=== PATIENT | female | born 1970 | race Caucasian/White ===

== ENCOUNTER 2021-08-12 16:11 | Inpatient (IN) | payer OTHER, BC ==
[~2021-08-12 16:11] MED LIST: Iopamidol-370 76% 500 ML 1 ML ONE
[2021-08-12] MEDS ORDERED: Rocuronium Bromide 10 MG/ML (10ML VIAL) ONE (16:21)
[2021-08-12 16:27] LABS: #Basophils 0.1 thou/uL (0.0-0.2); #Eosinphils 0.2 thou/uL (0.0-0.7); #Lymphocytes 5.4 thou/uL (1.20-3.40); #Monocytes 0.8 thou/uL (0.11-0.59); #Neutrophils 11.6 thou/uL (1.40-6.50); %Basophils 0.6 % (0.0-1.0); %Eosinophils 1.3 % (0.0-10.0); %Lymphocytes 29.7 % (21.0-51.0); %Monocytes 4.2 % (0.0-10.0); %Neutrophils 64.1 % (42.0-75.0); Hemoglobin 13.5 g/dL (12.0-16.0); Mean Corpuscular HGB CONC 33.1 g/dL (32.0-36.0); Mean Corpuscular Hemoglobin 27.8 pg (27.0-31.0); Mean Platelet Volume 7.2 fL (7.4-10.4); Platelet Count 380 thou/uL (130-400); RBC Distribution Width 13.4 % (11.5-14.5); Red Blood Cell (RBC) Count 4.87 mill/uL (4.20-5.40)
[2021-08-12] MEDS ORDERED: Propofol 1,000 MG/100 ML VIAL IV ONE (16:32)
[2021-08-12 16:43] LABS: ALT (SGPT) 69 U/L (8-55); AST (SGOT) 125 U/L (5-34); Albumin 4.4 g/dL (3.5-5.0); Alkaline Phosphatase 122 U/L (40-110); Anion Gap 18 mmol/L (10-20); BUN (Urea Nitrogen) 17 mg/dL (7.0-18.7); Bilirubin, Total 0.3 mg/dL (0.2-1.2); Calc. Creatinine Clearance 0 mL/min (70-130); Calcium 9.3 mg/dL (7.8-10.44); Carbon Dioxide 19 mmol/L (22-29); Chloride 106 mmol/L (98-107); Globulin 3.7 g/dL (2.4-3.5); Glucose 157 mg/dL (70-105); Potassium 3.5 mmol/L (3.5-5.1); Protein, Total 8.1 g/dL (6.0-8.3); Sodium 139 mmol/L (136-145)
[2021-08-12 16:44] LABS: BHCG - Serum Negative (NEGATIVE); Pregs Control Background? CLEAR/WHITE (CLR/WHITE); Pregs Control Bar Appear? YES (CONTROL BAR)
[2021-08-12 16:45] LABS: INR-International Normal Ratio 0.9; PTT 26.3 sec (22.9-36.1); Prothrombin Time 12.6 sec (12.0-14.7)
[2021-08-12] MEDS ORDERED: Insulin Regular 300 UNITS/3 ML VIAL SC PRN (17:08)
[2021-08-12] MEDS ORDERED: hydrALAZINE 20 MG/ML VIAL SLOW IVP PRN (17:08)
[2021-08-12] MEDS ORDERED: Dextrose 50% Abboject 50 ML SYRINGE SLOW IVP PRN (17:08)
[2021-08-12] MEDS ORDERED: Dextrose 5% in Water 1,000 ML IV PRN (17:08)
[2021-08-12] MEDS ORDERED: Ondansetron PF 4 MG/2 ML Vial IVP PRN (17:08)
[2021-08-12] MEDS ORDERED: Boostrix 0.5 ML (Tdap) VIAL ONE (17:09)
[2021-08-12 17:24] LABS: Bilirubin Negative (Negative); Blood, Urine 1+ (Negative); Clarity Clear (Clear); Glucose, Urine (Dipstick) Normal (Negative); Ketone, Urine Negative (Negative); Leukocyte Negative Leu/uL (Negative); Nitrite Negative (Negative); Protein, Urine (Dipstick) Negative (Neg-Trace); RBC/HPF 0-3 HPF (0-3); Specific Gravity, Urine 1.006 (1.002-1.036); Squamous Epithelial 0-3 HPF (0-3); Urobilinogen Normal mg/dL (Less than 2); WBC/HPF 0-3 HPF (0-3)
[2021-08-12 17:29] LABS: Bacteria/HPF 1+ HPF (None Seen)
[2021-08-12] MEDS ORDERED: Ventilator Sedation Protocol 1 EACH FS SCH (17:30)
[2021-08-12] MEDS ORDERED: Morphine 2 MG/ML VIAL SLOW IVP PRN (17:30)
[2021-08-12] MEDS ORDERED: Lorazepam 2 MG/ML VIAL SLOW IVP PRN (17:30)
[2021-08-12] MEDS ORDERED: DISCONTINUE PREVIOUS NARCOTIC PAIN MEDICATIONS AND BENZODIAZEPINES FS SCH (17:30)
[2021-08-12] MEDS ORDERED: Propofol BOLUS 1,000 MG/100 ML VIAL IV PRN (17:30)
[2021-08-12] MEDS ORDERED: Fentanyl BOLUS 250 ML IVPB PRN (17:30)
[2021-08-12 17:31] LABS: Amphetamine Not Detected (NotDetected); Barbiturates Screen Not Detected (NotDetected); Benzodiazepine Screen Not Detected (NotDetected); Cocaine Metabolite Screen Not Detected (NotDetected); Methadone Not Detected (NotDetected); Methamphetamine Not Detected (NotDetected); Opiate Screen Not Detected (NotDetected); Oxycodone Screen Not Detected (NotDetected); Phencyclidine (PCP) Not Detected (NotDetected); THC/Cannabinoid Screen Not Detected (NotDetected); Tricyclic Screen Not Detected (NotDetected)
[2021-08-12 17:36] LABS: Analyzer IN Cardio ER; Base Excess (BEa) -5.2 mEq/L (-2.0 to +3.0); CO2 Tension 32.2 mmHg (35.0-45.0); Carboxyhemoglobin (COHb) 0.3 gm% (0.0-3.0); Hemoglobin (Hb) 11.3 g/dL (12.0-16.0); O2 Tension (PaO2), arterial 86.9 mmHg (80.0-100.0); Potassium - ABG Lab 2.39 mmol/L (3.70-5.30); Puncture Site RBA; pH, Arterial 7.39 (7.35-7.45)
[2021-08-12 17:38] LABS: Magnesium 2.1 mg/dL (1.6-2.6); Phosphorus 5.5 mg/dL (2.3-4.7)
[2021-08-12] MEDS ORDERED: CEFAZOLIN 2 GM in Sodium Chloride 0.9% 100 ML IVPB SCH (17:45)
[2021-08-12] MEDS ORDERED: CEFAZOLIN 1 GM VIAL ONE (17:55)
[2021-08-12] MEDS ORDERED: levETIRAcetam 500 MG/5 ML VIAL ONE ×2 (17:58→18:00)
[2021-08-12] MEDS ORDERED: Calcium Chloride 13.6 MEQ in Sodium Chloride 0.9% 100 ML IVPB SCH (18:00)
[2021-08-12] MEDS ORDERED: Ketamine 50 MG/ML (10ML VIAL) ONE (18:21)
[2021-08-12] MEDS ORDERED: Sodium Chloride 0.9% 1,000 ML IV SCH (19:45)
[2021-08-12 20:11] LABS: Lactic Acid 4.4 mmol/L (0.5-2.2)
[2021-08-12] MEDS: Sodium Chloride 0.9% 1,000 ML IV SCH (20:33)
[2021-08-12] MEDS ORDERED: levETIRAcetam in NS 500 MG in Premix Bag 1 BAG IVPB SCH (21:00)
[2021-08-12] MEDS ORDERED: Famotidine/PF 20 mg/2ml Vial SLOW IVP SCH (21:00)
[2021-08-12] MEDS ORDERED: Xylocaine 1% w/ Epi 1:100K 10 ML VIAL ONE (21:30)
[2021-08-12] MEDS ORDERED: Lidocaine 1% w/Epinephrine 1:100K 20 ML VIAL FS SCH (22:15)
[2021-08-12] MEDS: levETIRAcetam 500 MG/5 ML VIAL SLOW IVP SCH (22:15)
[2021-08-12] MEDS: cefTRIAXone\\ROCEPHIN 2 GM in Sodium Chloride 0.9% 100 ML IVPB SCH (22:16)
[2021-08-12 22:52] LABS: #Lymphocytes 1.1 thou/uL (1.20-3.40); #Monocytes 0.7 thou/uL (0.11-0.59); #Neutrophils 11.4 thou/uL (1.40-6.50); %Eosinophils 0.2 % (0.0-10.0); %Lymphocytes 8.1 % (21.0-51.0); %Neutrophils 86.7 % (42.0-75.0); Hemoglobin 11.6 g/dL (12.0-16.0); Mean Corpuscular HGB CONC 31.2 g/dL (32.0-36.0); Mean Corpuscular Hemoglobin 28.1 pg (27.0-31.0); Mean Corpuscular Volume 89.8 fL (78.0-98.0); Mean Platelet Volume 7.7 fL (7.4-10.4); Platelet Count 215 thou/uL (130-400); RBC Distribution Width 13.3 % (11.5-14.5); Red Blood Cell (RBC) Count 4.13 mill/uL (4.20-5.40); White Blood Cell (WBC) Count 13.2 thou/uL (4.8-10.8)
[2021-08-12] MEDS: fentaNYL Citrate-0.9 % NaCl/PF 100 ML IV SCH (23:19)
[2021-08-13] MEDS: Sodium Chloride 0.9% 1,000 ML IV SCH ×3 (02:00→23:52)
[2021-08-13] MEDS ORDERED: Lorazepam 2 MG/ML VIAL SLOW IVP SCH (03:00)
[2021-08-13 03:56] LABS: Lactic Acid 4.4 mmol/L (0.5-2.2)
[2021-08-13 04:14] LABS: ALT (SGPT) 47 U/L (8-55); AST (SGOT) 74 U/L (5-34); Albumin 3.2 g/dL (3.5-5.0); Alkaline Phosphatase 77 U/L (40-110); Anion Gap 16 mmol/L (10-20); BUN (Urea Nitrogen) 13 mg/dL (9.8-20.1); Bilirubin, Total 0.2 mg/dL (0.2-1.2); Calc. Creatinine Clearance 130 mL/min (70-130); Calcium 8.4 mg/dL (7.8-10.44); Carbon Dioxide 14 mmol/L (22-29); Chloride 115 mmol/L (98-107); Globulin 2.7 g/dL (2.4-3.5); Glucose 136 mg/dL (70-105); Magnesium 1.7 mg/dL (1.6-2.6); Phosphorus 3.5 mg/dL (2.3-4.7); Potassium 4.2 mmol/L (3.5-5.1); Protein, Total 5.9 g/dL (6.0-8.3); Sodium 141 mmol/L (136-145)
[2021-08-13 04:51] LABS: Band 17 % (5-11); Hemoglobin 11.6 g/dL (12.0-16.0); Lymphocytes 10 % (21-51); MDiff Complete? YES; Mean Corpuscular HGB CONC 33.8 g/dL (32.0-36.0); Mean Corpuscular Hemoglobin 30.2 pg (27.0-31.0); Mean Corpuscular Volume 89.4 fL (78.0-98.0); Mean Platelet Volume 8.6 fL (7.4-10.4); Monocytes 4 % (0-10); Neutrophil 69 % (42-75); Platelet Count 200 thou/uL (130-400); RBC Distribution Width 13.4 % (11.5-14.5); RBC Morphology Normal; Red Blood Cell (RBC) Count 3.85 mill/uL (4.20-5.40); White Blood Cell (WBC) Count 9.7 thou/uL (4.8-10.8)
[2021-08-13] MEDS ORDERED: Sodium Chloride 0.9% 1,000 ML IV SCH (05:00)
[2021-08-13] MEDS ORDERED: Acetaminophen 650 MG Suppository PR PRN (07:14)
[2021-08-13 07:20] LABS: Actual Bicarbonate (HCO3a) 15.6 mEq/L (22-28); Base Excess (BEa) -8.7 mEq/L (-2.0 to +3.0); CO2 Tension 28.7 mmHg (35.0-45.0); Calcium, Ionized (arterial) 1.12 mmol/L (1.12-1.30); Carboxyhemoglobin (COHb) 0.2 gm% (0.0-3.0); Hemoglobin (Hb) 10.9 g/dL (12.0-16.0); O2 Tension (PaO2), arterial 91.1 mmHg (80.0-100.0); Potassium - ABG Lab 3.91 mmol/L (3.70-5.30); pH, Arterial 7.35 (7.35-7.45)
[2021-08-13 07:24] LABS: ALV-art Gradient 158.225 mmHg (0-20); Puncture Site RRA
[2021-08-13] MEDS ORDERED: Magnesium 2 GM/50 ML(in water) 2 GM in Premix Bag 1 BAG IVPB SCH (08:00)
[2021-08-13] MEDS ORDERED: Sodium Chloride 0.9% (PF) 10 ML VIAL FS PRN (08:15)
[2021-08-13] MEDS: levETIRAcetam 500 MG/5 ML VIAL SLOW IVP SCH ×2 (08:40→20:30)
[2021-08-13] MEDS: Pantoprazole 40 MG VIAL IVP SCH (08:40)
[2021-08-13] MEDS: fentaNYL Citrate-0.9 % NaCl/PF 100 ML IV SCH (13:47)
[2021-08-13 15:37] LABS: #Lymphocytes 1.1 thou/uL (1.20-3.40); #Monocytes 0.7 thou/uL (0.11-0.59); #Neutrophils 8.4 thou/uL (1.40-6.50); %Basophils 0.1 % (0.0-1.0); %Eosinophils 0.1 % (0.0-10.0); %Lymphocytes 11.1 % (21.0-51.0); %Monocytes 6.7 % (0.0-10.0); Hemoglobin 11.1 g/dL (12.0-16.0); Mean Corpuscular HGB CONC 31.6 g/dL (32.0-36.0); Mean Corpuscular Hemoglobin 28.6 pg (27.0-31.0); Mean Corpuscular Volume 90.7 fL (78.0-98.0); Mean Platelet Volume 7.8 fL (7.4-10.4); Platelet Count 188 thou/uL (130-400); RBC Distribution Width 13.7 % (11.5-14.5); Red Blood Cell (RBC) Count 3.88 mill/uL (4.20-5.40); White Blood Cell (WBC) Count 10.2 thou/uL (4.8-10.8)
[2021-08-13 15:59] LABS: Anion Gap 13 mmol/L (10-20); BUN (Urea Nitrogen) 11 mg/dL (9.8-20.1); Calc. Creatinine Clearance 138 mL/min (70-130); Calcium 8.3 mg/dL (7.8-10.44); Carbon Dioxide 20 mmol/L (22-29); Chloride 114 mmol/L (98-107); Glucose 143 mg/dL (70-105); Magnesium 2.2 mg/dL (1.6-2.6); Phosphorus 2.8 mg/dL (2.3-4.7); Sodium 143 mmol/L (136-145)
[2021-08-13 16:07] LABS: Lactic Acid 4.3 mmol/L (0.5-2.2)
[2021-08-13] MEDS ORDERED: Lactated Ringer's 1,000 ML IV SCH (16:15)
[2021-08-13] MEDS ORDERED: Sodium Phosphate 15 MMOL in Sodium Chloride 0.9% 250 ML 250 ML IVPB SCH (16:15)
[2021-08-13] MEDS: Propofol 1,000 MG/100 ML VIAL IV PRN (17:29)
[2021-08-13] MEDS: cefTRIAXone\\ROCEPHIN 2 GM in Sodium Chloride 0.9% 100 ML IVPB SCH (17:55)
[2021-08-14] MEDS ORDERED: Sodium Chloride 0.9% 1,000 ML IV SCH (00:45)
[2021-08-14] MEDS ORDERED: Hydrocortisone Sod Succ/PF 100 mg/2 ml Vial IVP SCH ×2 (01:15→02:00)
[2021-08-14 01:24] LABS: #Lymphocytes 0.9 thou/uL (1.20-3.40); #Monocytes 0.4 thou/uL (0.11-0.59); #Neutrophils 6.7 thou/uL (1.40-6.50); %Eosinophils 0.1 % (0.0-10.0); %Lymphocytes 11.3 % (21.0-51.0); %Monocytes 5.5 % (0.0-10.0); %Neutrophils 83.1 % (42.0-75.0); Hemoglobin 8.3 g/dL (12.0-16.0); Mean Corpuscular HGB CONC 31.7 g/dL (32.0-36.0); Mean Corpuscular Hemoglobin 28.4 pg (27.0-31.0); Mean Corpuscular Volume 89.6 fL (78.0-98.0); Mean Platelet Volume 7.8 fL (7.4-10.4); Platelet Count 146 thou/uL (130-400); RBC Distribution Width 13.7 % (11.5-14.5); Red Blood Cell (RBC) Count 2.92 mill/uL (4.20-5.40)
[2021-08-14] MEDS: fentaNYL Citrate-0.9 % NaCl/PF 100 ML IV SCH (03:05)
[2021-08-14 03:16] LABS: #Monocytes 0.4 thou/uL (0.11-0.59); %Basophils 0.2 % (0.0-1.0); %Eosinophils 0.1 % (0.0-10.0); %Lymphocytes 11.4 % (21.0-51.0); %Monocytes 4.2 % (0.0-10.0); %Neutrophils 84.1 % (42.0-75.0); Hemoglobin 8.6 g/dL (12.0-16.0); Mean Corpuscular Hemoglobin 29.6 pg (27.0-31.0); Mean Corpuscular Volume 89.7 fL (78.0-98.0); Mean Platelet Volume 7.8 fL (7.4-10.4); Platelet Count 146 thou/uL (130-400); RBC Distribution Width 13.6 % (11.5-14.5); White Blood Cell (WBC) Count 8.4 thou/uL (4.8-10.8)
[2021-08-14 03:40] LABS: Lactic Acid 2.3 mmol/L (0.5-2.2)
[2021-08-14 03:54] LABS: Anion Gap 10 mmol/L (10-20); BUN (Urea Nitrogen) 8 mg/dL (9.8-20.1); CK (CPK) 1300 U/L (29-168); Calc. Creatinine Clearance 160 mL/min (70-130); Calcium 7.6 mg/dL (7.8-10.44); Carbon Dioxide 20 mmol/L (22-29); Chloride 113 mmol/L (98-107); Glucose 144 mg/dL (70-105); Phosphorus 2.2 mg/dL (2.3-4.7); Potassium 3.6 mmol/L (3.5-5.1); Sodium 139 mmol/L (136-145)
[2021-08-14] MEDS: Propofol 1,000 MG/100 ML VIAL IV PRN (04:17)
[2021-08-14] MEDS ORDERED: Potassium Phosphate 30 MMOL in Sodium Chloride 0.9% 250 ML 250 ML IVPB SCH (06:00)
[2021-08-14] MEDS: Hydrocortisone Sod Succ/PF 100 mg/2 ml Vial IVP SCH ×3 (06:02→23:08)
[2021-08-14] MEDS: Sodium Chloride 0.9% 1,000 ML IV SCH ×4 (06:37→23:09)
[2021-08-14] MEDS ORDERED: Sodium Chloride 0.9% 500 ML IV SCH (06:45)
[2021-08-14 07:45] LABS: Actual Bicarbonate (HCO3a) 19.7 mEq/L (22-28); Base Excess (BEa) -5.4 mEq/L (-2.0 to +3.0); Calcium, Ionized (arterial) 1.09 mmol/L (1.12-1.30); Carboxyhemoglobin (COHb) 0.7 gm% (0.0-3.0); Potassium - ABG Lab 3.59 mmol/L (3.70-5.30); pH, Arterial 7.35 (7.35-7.45)
[2021-08-14 07:51] LABS: O2 Tension (PaO2), arterial 89.1 mmHg (80.0-100.0)
[2021-08-14 07:52] LABS: Puncture Site RBA
[2021-08-14] MEDS ORDERED: Calcium Chloride 13.6 MEQ in Sodium Chloride 0.9% 100 ML IVPB SCH (09:00)
[2021-08-14] MEDS: levETIRAcetam 500 MG/5 ML VIAL SLOW IVP SCH ×2 (09:09→20:42)
[2021-08-14] MEDS: Polyethylene Glycol 3350 17 GM Packet PO SCH (09:10)
[2021-08-14] MEDS: Pantoprazole 40 MG VIAL IVP SCH (09:10)
[2021-08-14] MEDS: Senokot S 8.6-50 MG TAB PO SCH ×2 (09:10→23:09)
[2021-08-14] MEDS ORDERED: Haloperidol Lactate 5 MG/ML VIAL IM SCH (15:15)
[2021-08-14] MEDS: Morphine 4 MG/ML VIAL SLOW IVP PRN (15:42)
[2021-08-14] MEDS: cefTRIAXone\\ROCEPHIN 2 GM in Sodium Chloride 0.9% 100 ML IVPB SCH (17:09)
[2021-08-14] MEDS ORDERED: Thiamine HCl 200 MG/2 ML VIAL SLOW IVP SCH (20:00)
[2021-08-14] MEDS: Haloperidol Lactate 5 MG/ML VIAL IM PRN (20:34)
[2021-08-15] MEDS: Haloperidol Lactate 5 MG/ML VIAL IM PRN ×5 (00:09→20:10)
[2021-08-15] MEDS: Morphine 4 MG/ML VIAL SLOW IVP PRN ×4 (02:56→15:51)
[2021-08-15] MEDS: Hydrocortisone Sod Succ/PF 100 mg/2 ml Vial IVP SCH (06:53)
[2021-08-15] MEDS: Sodium Chloride 0.9% 1,000 ML IV SCH (06:54)
[2021-08-15 07:17] LABS: Anion Gap 13 mmol/L (10-20); BUN (Urea Nitrogen) 6 mg/dL (9.8-20.1); CK (CPK) 1082 U/L (29-168); Calc. Creatinine Clearance 188 mL/min (70-130); Calcium 8.2 mg/dL (7.8-10.44); Carbon Dioxide 22 mmol/L (22-29); Chloride 114 mmol/L (98-107); Glucose 104 mg/dL (70-105); Magnesium 1.8 mg/dL (1.6-2.6); Phosphorus 1.7 mg/dL (2.3-4.7); Potassium 3.5 mmol/L (3.5-5.1); Sodium 145 mmol/L (136-145)
[2021-08-15 07:20] LABS: #Lymphocytes 1.3 thou/uL (1.20-3.40); #Monocytes 0.6 thou/uL (0.11-0.59); #Neutrophils 11.2 thou/uL (1.40-6.50); %Eosinophils 0.2 % (0.0-10.0); %Lymphocytes 9.9 % (21.0-51.0); %Monocytes 4.4 % (0.0-10.0); %Neutrophils 85.4 % (42.0-75.0); Hemoglobin 9.4 g/dL (12.0-16.0); Mean Corpuscular HGB CONC 31.4 g/dL (32.0-36.0); Mean Corpuscular Hemoglobin 28.7 pg (27.0-31.0); Mean Corpuscular Volume 91.4 fL (78.0-98.0); Mean Platelet Volume 8.1 fL (7.4-10.4); Platelet Count 158 thou/uL (130-400); RBC Distribution Width 13.7 % (11.5-14.5); Red Blood Cell (RBC) Count 3.26 mill/uL (4.20-5.40); White Blood Cell (WBC) Count 13.1 thou/uL (4.8-10.8)
[2021-08-15] MEDS ORDERED: Potassium Phosphate 30 MMOL in Sodium Chloride 0.9% 250 ML 250 ML IVPB SCH ×2 (07:30→23:00)
[2021-08-15] MEDS ORDERED: Magnesium 2 GM/50 ML(in water) 2 GM in Premix Bag 1 BAG IVPB SCH (07:30)
[2021-08-15] MEDS ORDERED: Cyclobenzaprine 10 MG TAB PO PRN (08:16)
[2021-08-15] MEDS ORDERED: Acetaminophen/Codeine 30-300mg Tablet PO PRN (08:17)
[2021-08-15] MEDS: levETIRAcetam 500 MG/5 ML VIAL SLOW IVP SCH (09:08)
[2021-08-15] MEDS: Pantoprazole 40 MG VIAL IVP SCH (09:09)
[2021-08-15] MEDS ORDERED: Furosemide 40 MG/4 ML VIAL SLOW IVP SCH (09:15)
[2021-08-15 09:30] LABS: Actual Bicarbonate (HCO3a) 22.1 mEq/L (22-28); Base Excess (BEa) -1.8 mEq/L (-2.0 to +3.0); CO2 Tension 33.8 mmHg (35.0-45.0); Calcium, Ionized (arterial) 1.15 mmol/L (1.12-1.30); Carboxyhemoglobin (COHb) 0.2 gm% (0.0-3.0); Hemoglobin (Hb) 9.4 g/dL (12.0-16.0); Potassium - ABG Lab 3.48 mmol/L (3.70-5.30); pH, Arterial 7.43 (7.35-7.45)
[2021-08-15 09:33] LABS: O2 Tension (PaO2), arterial 56.6 mmHg (80.0-100.0); Puncture Site RBA
[2021-08-15] MEDS: Gabapentin 300 MG CAP PO SCH ×3 (14:08→20:15)
[2021-08-15] MEDS: Acetaminophen/Codeine 30-300mg Tablet PO SCH ×3 (14:12→23:25)
[2021-08-15] MEDS: Acetaminophen 500 MG TAB PO SCH ×3 (14:13→23:27)
[2021-08-15] MEDS: Senokot S 8.6-50 MG TAB PO SCH ×2 (14:35→20:16)
[2021-08-15] MEDS: Polyethylene Glycol 3350 17 GM Packet PO SCH (14:35)
[2021-08-15] MEDS: cefTRIAXone\\ROCEPHIN 2 GM in Sodium Chloride 0.9% 100 ML IVPB SCH (17:29)
[2021-08-15] MEDS: levETIRAcetam 500 MG TAB PO SCH (20:16)
[2021-08-15] MEDS ORDERED: levETIRAcetam 500 MG/5 ML VIAL SLOW IVP SCH (21:00)
[2021-08-15] MEDS ORDERED: levETIRAcetam 500 MG TAB PO SCH (21:00)
[2021-08-15 21:44] LABS: Troponin I 0.087 ng/mL (< 0.028)
[2021-08-15 22:24] LABS: Anion Gap 14 mmol/L (10-20); BUN (Urea Nitrogen) 8 mg/dL (9.8-20.1); Calc. Creatinine Clearance 168 mL/min (70-130); Calcium 8.2 mg/dL (7.8-10.44); Carbon Dioxide 26 mmol/L (22-29); Chloride 107 mmol/L (98-107); Glucose 113 mg/dL (70-105); Phosphorus 2.1 mg/dL (2.3-4.7); Potassium 3.1 mmol/L (3.5-5.1); Sodium 144 mmol/L (136-145)
[2021-08-15] MEDS ORDERED: Potassium Chloride 20 MEQ in Premix Bag 1 BAG IVPB SCH (23:00)
[2021-08-16] MEDS: Acetaminophen/Codeine 30-300mg Tablet PO SCH (06:34)
[2021-08-16] MEDS: Acetaminophen 500 MG TAB PO SCH (06:35)
[2021-08-16 06:42] LABS: Anion Gap 12 mmol/L (10-20); BUN (Urea Nitrogen) 10 mg/dL (9.8-20.1); Calc. Creatinine Clearance 172 mL/min (70-130); Calcium 8.5 mg/dL (7.8-10.44); Carbon Dioxide 28 mmol/L (22-29); Chloride 107 mmol/L (98-107); Glucose 118 mg/dL (70-105); Potassium 3.4 mmol/L (3.5-5.1); Sodium 144 mmol/L (136-145)
[2021-08-16 06:43] LABS: #Eosinphils 0.1 thou/uL (0.0-0.7); #Lymphocytes 1.1 thou/uL (1.20-3.40); #Monocytes 0.4 thou/uL (0.11-0.59); #Neutrophils 8.3 thou/uL (1.40-6.50); %Basophils 0.3 % (0.0-1.0); %Eosinophils 1.3 % (0.0-10.0); %Monocytes 3.8 % (0.0-10.0); %Neutrophils 83.8 % (42.0-75.0); Hemoglobin 9.1 g/dL (12.0-16.0); Mean Corpuscular HGB CONC 32.4 g/dL (32.0-36.0); Mean Corpuscular Volume 89.5 fL (78.0-98.0); Mean Platelet Volume 8.2 fL (7.4-10.4); Platelet Count 178 thou/uL (130-400); RBC Distribution Width 13.9 % (11.5-14.5); Red Blood Cell (RBC) Count 3.13 mill/uL (4.20-5.40)
[2021-08-16] MEDS: Polyethylene Glycol 3350 17 GM Packet PO SCH (07:58)
[2021-08-16] MEDS: Gabapentin 300 MG CAP PO SCH (07:58)
[2021-08-16] MEDS: Pantoprazole 40 MG VIAL IVP SCH (07:59)
[2021-08-16] MEDS: Senokot S 8.6-50 MG TAB PO SCH ×2 (07:59→20:36)
[2021-08-16] MEDS: levETIRAcetam 500 MG TAB PO SCH ×2 (07:59→20:37)
[2021-08-16] MEDS ORDERED: Potassium Phosphate 30 MMOL in Sodium Chloride 0.9% 250 ML 250 ML IVPB SCH (08:15)
[2021-08-16] MEDS: Cefdinir 300 MG CAP PO SCH ×2 (09:05→20:37)
[2021-08-16] MEDS: Famotidine 20 MG TAB PO SCH ×2 (09:06→20:37)
[2021-08-16] MEDS ORDERED: Acetaminophen/Codeine 30-300mg Tablet PO PRN (09:11)
[2021-08-16] MEDS: Acetaminophen 325 MG TAB PO SCH ×2 (12:14→17:19)
[2021-08-16] MEDS ORDERED: Gabapentin 300 MG CAP PO SCH (15:00)
[2021-08-16] MEDS: Gabapentin 100 MG CAP PO SCH ×2 (15:16→20:37)
[2021-08-16] MEDS: Acetaminophen/Codeine 30-300mg Tablet PO PRN (17:20)
[2021-08-17 05:00] LABS: #Eosinphils 0.1 thou/uL (0.0-0.7); #Lymphocytes 0.7 thou/uL (1.20-3.40); #Monocytes 0.2 thou/uL (0.11-0.59); #Neutrophils 6.3 thou/uL (1.40-6.50); %Basophils 0.1 % (0.0-1.0); %Eosinophils 1.5 % (0.0-10.0); %Lymphocytes 9.2 % (21.0-51.0); %Monocytes 3.1 % (0.0-10.0); %Neutrophils 86.1 % (42.0-75.0); Hemoglobin 8.8 g/dL (12.0-16.0); Mean Corpuscular HGB CONC 33.1 g/dL (32.0-36.0); Mean Corpuscular Hemoglobin 28.8 pg (27.0-31.0); Mean Platelet Volume 7.7 fL (7.4-10.4); Platelet Count 189 thou/uL (130-400); RBC Distribution Width 13.8 % (11.5-14.5); Red Blood Cell (RBC) Count 3.05 mill/uL (4.20-5.40); White Blood Cell (WBC) Count 7.4 thou/uL (4.8-10.8)
[2021-08-17 05:22] LABS: Anion Gap 15 mmol/L (10-20); BUN (Urea Nitrogen) 12 mg/dL (9.8-20.1); Calc. Creatinine Clearance 175 mL/min (70-130); Calcium 8.2 mg/dL (7.8-10.44); Carbon Dioxide 24 mmol/L (22-29); Chloride 106 mmol/L (98-107); Glucose 101 mg/dL (70-105); Phosphorus 3.2 mg/dL (2.3-4.7); Potassium 3.7 mmol/L (3.5-5.1); Sodium 141 mmol/L (136-145)
[2021-08-17] MEDS: Acetaminophen 325 MG TAB PO SCH ×4 (06:38→18:10)
[2021-08-17] MEDS: Cefdinir 300 MG CAP PO SCH ×2 (09:14→21:01)
[2021-08-17] MEDS: levETIRAcetam 500 MG TAB PO SCH (09:14)
[2021-08-17] MEDS: Gabapentin 100 MG CAP PO SCH ×3 (09:14→21:01)
[2021-08-17] MEDS: Senokot S 8.6-50 MG TAB PO SCH ×2 (09:14→21:01)
[2021-08-17] MEDS: Polyethylene Glycol 3350 17 GM Packet PO SCH (09:15)
[2021-08-17] MEDS: Famotidine 20 MG TAB PO SCH ×2 (09:19→21:01)
[2021-08-17] MEDS ORDERED: Cyclobenzaprine 10 MG TAB PO PRN (11:37)
[2021-08-18] MEDS: Acetaminophen 325 MG TAB PO SCH ×5 (00:01→19:30)
[2021-08-18] MEDS: Acetaminophen/Codeine 30-300mg Tablet PO PRN ×2 (04:17→19:32)
[2021-08-18 06:31] LABS: Anion Gap 14 mmol/L (10-20); BUN (Urea Nitrogen) 10 mg/dL (9.8-20.1); Calc. Creatinine Clearance 176 mL/min (70-130); Calcium 8.4 mg/dL (7.8-10.44); Carbon Dioxide 23 mmol/L (22-29); Chloride 108 mmol/L (98-107); Glucose 97 mg/dL (70-105); Potassium 3.5 mmol/L (3.5-5.1); Sodium 141 mmol/L (136-145)
[2021-08-18] MEDS: Cefdinir 300 MG CAP PO SCH ×2 (08:41→19:29)
[2021-08-18] MEDS: Gabapentin 100 MG CAP PO SCH ×3 (08:41→19:29)
[2021-08-18] MEDS: Senokot S 8.6-50 MG TAB PO SCH ×2 (08:42→19:30)
[2021-08-18] MEDS: Famotidine 20 MG TAB PO SCH ×2 (08:42→19:30)
[2021-08-18] MEDS: Saccharomyces boulardii 250 MG CAP PO SCH (08:42)
[2021-08-18] MEDS: Polyethylene Glycol 3350 17 GM Packet PO SCH (08:42)
[2021-08-19] MEDS: Acetaminophen 325 MG TAB PO SCH ×3 (05:23→17:34)
[2021-08-19] MEDS: Acetaminophen/Codeine 30-300mg Tablet PO PRN (05:24)
[2021-08-19] MEDS: Gabapentin 100 MG CAP PO SCH ×2 (09:07→15:07)
[2021-08-19] MEDS: Cefdinir 300 MG CAP PO SCH (09:07)
[2021-08-19] MEDS: Famotidine 20 MG TAB PO SCH (09:08)
[2021-08-19] MEDS: Polyethylene Glycol 3350 17 GM Packet PO SCH (09:08)
[2021-08-19] MEDS: Saccharomyces boulardii 250 MG CAP PO SCH (09:08)
[2021-08-19] MEDS: Senokot S 8.6-50 MG TAB PO SCH (09:08)
[2021-08-19 12:28] VITALS: BMI 35.0
[2021-08-19 15:56] VITALS: BP 139/91; TEMP 99.1
== END 2021-08-19 20:18 | DRG 963 ==
LOC: EDBD 16:11 → ERS 16:11 → CCU 17:08 → SURG A 08-17 15:44
PROVIDERS: ADMIT Student in an Organized Health Care Education/Training Program; ATTEND Surgery
PROC: 30233N1 Transfusion of Nonautologous Red Blood Cells into Peripheral Vein, Percutaneous Approach (ICD-10-PCS; principal; 2021-08-12)
PROC: 0BH17EZ Insertion of Endotracheal Airway into Trachea, Via Natural or Artificial Opening (ICD-10-PCS; 2021-08-12)
PROC: 5A1945Z Respiratory Ventilation, 24-96 Consecutive Hours (ICD-10-PCS; 2021-08-12)
PROC: 0D9770Z Drainage of Stomach, Pylorus with Drainage Device, Via Natural or Artificial Opening (ICD-10-PCS; 2021-08-12)
DX: S06.6X9A Traumatic subarachnoid hemorrhage with loss of consciousness of unspecified duration, initial encounter (principal); J96.01 Acute respiratory failure with hypoxia; S32.10XA Unspecified fracture of sacrum, initial encounter for closed fracture; S32.038A Other fracture of third lumbar vertebra, initial encounter for closed fracture; S32.048A Other fracture of fourth lumbar vertebra, initial encounter for closed fracture; S32.058A Other fracture of fifth lumbar vertebra, initial encounter for closed fracture; S32.591A Other specified fracture of right pubis, initial encounter for closed fracture; S22.43XA Multiple fractures of ribs, bilateral, initial encounter for closed fracture; S36.113A Laceration of liver, unspecified degree, initial encounter; S27.322A Contusion of lung, bilateral, initial encounter; S36.899A Unspecified injury of other intra-abdominal organs, initial encounter; N17.9 Acute kidney failure, unspecified; E87.2 Acidosis; G93.40 Encephalopathy, unspecified; D62 Acute posthemorrhagic anemia; Z20.822 Contact with and (suspected) exposure to COVID-19; Z78.1 Physical restraint status; R40.2141 Coma scale, eyes open, spontaneous, in the field [EMT or ambulance]; R40.2351 Coma scale, best motor response, localizes pain, in the field [EMT or ambulance]; R40.2241 Coma scale, best verbal response, confused conversation, in the field [EMT or ambulance]; S51.031A Puncture wound without foreign body of right elbow, initial encounter; S01.81XA Laceration without foreign body of other part of head, initial encounter; S02.19XA Other fracture of base of skull, initial encounter for closed fracture; S06.329A Contusion and laceration of left cerebrum with loss of consciousness of unspecified duration, initial encounter; I95.9 Hypotension, unspecified; I10 Essential (primary) hypertension; E03.9 Hypothyroidism, unspecified; G93.89 Other specified disorders of brain; H73.893 Other specified disorders of tympanic membrane, bilateral; E83.39 Other disorders of phosphorus metabolism; G43.909 Migraine, unspecified, not intractable, without status migrainosus; J30.2 Other seasonal allergic rhinitis; M54.12 Radiculopathy, cervical region; E87.6 Hypokalemia; Z88.0 Allergy status to penicillin; Z88.1 Allergy status to other antibiotic agents; Z88.2 Allergy status to sulfonamides; Z90.710 Acquired absence of both cervix and uterus; V48.5XXA Car driver injured in noncollision transport accident in traffic accident, initial encounter; Z79.51 Long term (current) use of inhaled steroids; Z79.899 Other long term (current) drug therapy
CPT/HCPCS: 31500; 36415; 36416; 36430; 36600; 51702; 70450; 70486; 70498; 71045; 71260; 72125; 72170; 74018; 74177; 80048; 80053; 80306; 80307; 81003; 81015; 82533; 82550; 82805; 83605; 83735; 83880; 84100; 84484; 84703; 85025; 85610; 85730; 86850; 86900; 86901; 90471; 90715; 93005; 93010; 93970; 94002; 94003; 94640; 94660; 96374; 96375; 96376; 99292; C9113; G0390; J0690; J0696; J1630; J1720; J1940; J1953; J2060; J2270; J2704; J3475; J3480; J3490; J7050; J7120; J7620; P9016; P9045; Q9967; S0028; U0003; U0005